=== PATIENT | female | born 1945 | race Caucasian/White ===

== ENCOUNTER 2024-01-09 10:30 | Outpatient (RCR) | payer MEDICARE, BC, SELFPAY | END 2024-01-09 16:13 | disposition home or self-care (01) | PROVIDERS: PCP Family Medicine; Visit Provider Student in an Organized Health Care Education/Training Program | DX: S39.012A Strain of muscle, fascia and tendon of lower back, initial encounter (principal); M54.6 Pain in thoracic spine; M77.12 Lateral epicondylitis, left elbow; M54.9 Dorsalgia, unspecified; Z74.09 Other reduced mobility; M25.522 Pain in left elbow; M62.81 Muscle weakness (generalized); Z51.89 Encounter for other specified aftercare | CPT/HCPCS: 97035; 97110; 97140; 97161; 97165; X5282 ==

== ENCOUNTER 2024-03-01 16:24 | Outpatient (RCR) | payer MEDICARE, BC, SELFPAY | END 2024-06-29 23:59 | disposition home or self-care (01) | PROVIDERS: PCP Family Medicine; Visit Provider Family Medicine | DX: H81.11 Benign paroxysmal vertigo, right ear (principal); M54.2 Cervicalgia; Z51.89 Encounter for other specified aftercare | CPT/HCPCS: 97112; 97161 ==